=== PATIENT | female | born 1985 | race Two or more races ===

== ENCOUNTER → 2020-05-30 | Day surgery (SDC) | payer OTHER ==
[~2020-05-30] MED LIST: BUCALSEP SPRAY30 ML MM; CATAFLAM50 MG PO; CLEOCIN HCL300 MG PO; FIORICET 50-321 EACH PO; GILTUSS TR TAB1 EACH PO; IRON325 ( 651 PO; MOTRIN800 MG PO; PRENATAL1 TAB; ZYRTEC10 MG PO
== END | disposition home or self-care (01) ==
LOC: CIR.AMB 06:10 → ADM 06-24 08:30
PROVIDERS: ATTEND Obstetrics & Gynecology
DX: N84.0 Polyp of corpus uteri (principal); Z20.828 Contact with and (suspected) exposure to other viral communicable diseases

== ENCOUNTER 2020-11-15 18:25 | Emergency (ER) | payer OTHER ==
[~2020-11-15] VITALS: Ht 167.6 cm; Wt 83.9 kg
== END 2020-11-15 21:44 | disposition home or self-care (01) ==
LOC: ER 18:25
DX: R42 Dizziness and giddiness (principal)

== ENCOUNTER 2021-04-29 11:08 | Outpatient (CLI) | payer OTHER | END 2021-04-29 11:09 | disposition home or self-care (01) | LOC: LAB 11:08 | PROVIDERS: ATTEND Internal Medicine Hematology & Oncology | DX: D50.8 Other iron deficiency anemias (principal); E22.1 Hyperprolactinemia; D68.8 Other specified coagulation defects; R79.89 Other specified abnormal findings of blood chemistry; I10 Essential (primary) hypertension; R74.02 Elevation of levels of lactic acid dehydrogenase [LDH]; K76.89 Other specified diseases of liver; D63.8 Anemia in other chronic diseases classified elsewhere; D55.0 Anemia due to glucose-6-phosphate dehydrogenase [G6PD] deficiency; D51.0 Vitamin B12 deficiency anemia due to intrinsic factor deficiency; D51.1 Vitamin B12 deficiency anemia due to selective vitamin B12 malabsorption with proteinuria; E03.8 Other specified hypothyroidism; E06.3 Autoimmune thyroiditis; D50.0 Iron deficiency anemia secondary to blood loss (chronic); N93.8 Other specified abnormal uterine and vaginal bleeding; D35.2 Benign neoplasm of pituitary gland; D68.0 Von Willebrand disease ==

== ENCOUNTER 2021-06-22 08:46 | Outpatient (CLI) | payer OTHER | END 2021-06-22 10:41 | disposition home or self-care (01) | LOC: SONOGRAMA 08:46 | PROVIDERS: ATTEND Pathology Anatomic Pathology & Clinical Pathology | DX: E04.2 Nontoxic multinodular goiter (principal) ==

== ENCOUNTER 2023-03-30 11:15 | Outpatient (CLI) | payer OTHER | END 2023-03-30 11:23 | disposition home or self-care (01) | LOC: LAB 11:15 | PROVIDERS: ATTEND Internal Medicine Hematology & Oncology | DX: D50.8 Other iron deficiency anemias (principal); R79.9 Abnormal finding of blood chemistry, unspecified; I10 Essential (primary) hypertension; R74.02 Elevation of levels of lactic acid dehydrogenase [LDH]; K76.89 Other specified diseases of liver; D51.8 Other vitamin B12 deficiency anemias; E55.9 Vitamin D deficiency, unspecified; D68.00 Von Willebrand disease, unspecified; D68.8 Other specified coagulation defects; D66 Hereditary factor VIII deficiency; D68.51 Activated protein C resistance; D50.0 Iron deficiency anemia secondary to blood loss (chronic); D35.2 Benign neoplasm of pituitary gland; N93.8 Other specified abnormal uterine and vaginal bleeding; D69.1 Qualitative platelet defects ==

== ENCOUNTER → 2024-09-05 09:44 | Outpatient (CLI) | payer OTHER ==
[2024-09-05 11:13] LABS: HEMATOCRIT 40.6 % (36.0-45.00); HEMOGLOBIN 13.7 g/dL (12.0-15.00); MEAN CELL VOLUME 87.4 fL (80.00-100.00); MEAN CORPUSCULAR HEMOGLOBIN 29.5 pg (27.00-32.0); MEAN CORPUSCULAR HGB CONC 33.8 g/dl (32.0-36.0); PLATELET COUNT 275 K/uL (150-450); RED BLOOD COUNT 4.64 M/uL (4.00-6.00)
[2024-09-05 11:51] LABS: COL EPI 110 SECONDS (82-175)
[2024-09-05 11:54] LABS: ALBUMIN 4.2 gm/dL (3.4-5.0); BILIRUBIN TOTAL 0.48 mg/dL (0.3-1.2); CALCIUM 9.5 mg/dL (8.5-10.1); CHOL HDL RATIO 3.9 (0-5.0); CREATININE SERUM 0.73 mg/dL (0.55-1.02); GFR 90.21; GLOBULINA 3.5 G/DL (2.4-3.5); POTASSIUM 4.05 mEq/L (3.5-5.1); T4 FREE 0.81 NG/ML (0.76-1.46); TOTAL PROTEIN 7.7 gm/dL (6.4-8.2); TSH 2.23 uIU/mL (0.358-3.74)
[2024-09-05 11:55] LABS: T4 TOTAL 7.24 UG/DL (4.8-13.9)
[2024-09-05 11:58] LABS: PARTIAL THROMBOPLASTIN TIME 26.5 SECONDS (22.0-34.0); PROTHROMBIN TIME 10.9 SECONDS (9.0-11.5)
[2024-09-06 16:59] LABS: FOLIC ACID 17.26 ng/ml (4.78-20); VITAMIN D3 25 HYDROXY 39.62 ng/ml (30-120)
[2024-09-07 08:27] LABS: MANUAL PLATELET COUNT 326
[2024-09-07 08:28] LABS: PLATELET ESTIMATE NORMAL (NORMAL)
== END | disposition home or self-care (01) ==
LOC: LAB 09:44
PROVIDERS: ATTEND Internal Medicine Hematology & Oncology
DX: E11.65 Type 2 diabetes mellitus with hyperglycemia (principal); E78.5 Hyperlipidemia, unspecified; E03.8 Other specified hypothyroidism; D68.00 Von Willebrand disease, unspecified; D50.0 Iron deficiency anemia secondary to blood loss (chronic); D35.2 Benign neoplasm of pituitary gland; N93.8 Other specified abnormal uterine and vaginal bleeding; D50.8 Other iron deficiency anemias; R79.9 Abnormal finding of blood chemistry, unspecified; I10 Essential (primary) hypertension; R74.02 Elevation of levels of lactic acid dehydrogenase [LDH]; K76.89 Other specified diseases of liver; D51.8 Other vitamin B12 deficiency anemias; E55.9 Vitamin D deficiency, unspecified; D68.8 Other specified coagulation defects; D69.1 Qualitative platelet defects